=== PATIENT | male | born 1960 | race Caucasian/White ===

== ENCOUNTER 2023-02-05 10:14 | Outpatient (REF) | payer OTHER, SELFPAY ==
--- NOTE | ~2023-02-05 | XR_ITS ---
EXAMINATION: XR LUMBOSACRAL SPINE WITH OBLIQUES CLINICAL INFORMATION: Arthrodesis status COMPARISON: None available. TECHNIQUE: 4 views of the lumbar spine. Lateral view of the lumbosacral junction. FINDINGS: There is normal lumbar lordosis. There is disc prosthesis at the L4-L5 disc level with bilateral L4 and L5 pedicular screws and interconnecting rods for posterior stabilization. Rest of the disc heights, vertebral heights and alignment is preserved. On flexion-extension views there is no subluxation seen the soft tissues are normal. XR/XR lumbar spine 4V min IMPRESSION: Disc prosthesis at the L4-L5 disc level with bilateral L4 and L5 pedicular screws and interconnecting rods for posterior stabilization. No subluxation seen on flexion-extension views.
== END 2023-02-05 10:15 | disposition home or self-care (01) ==
LOC: HO.HOSX 10:14
PROVIDERS: PCP Internal Medicine Geriatric Medicine; Visit Provider Neurological Surgery
DX: Z98.1 Arthrodesis status (principal)
CPT/HCPCS: 72110

== ENCOUNTER 2023-05-14 08:43 | Outpatient (AMB) | payer OTHER, SELFPAY ==
--- NOTE | 2023-05-14 09:05 | HO.SPINEOV ---
Intake Intake Visit Reasons: 3 month f/u Intake Note: Mr. Nolasco is here today for his 3mo f/u. 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 He states that his back pain is improved with physical therapy and anti-inflammatory drugs. I advised him to continue this regiment. On exam, he looks comfortable. He ambulates without pain. He will call my office if he regresses and at that point we will order a CT of the lumbar spine. Caesar Leon MD, PhD Spine Fellowship Trained Neurosurgeon Director, [facility] Coding Level of Care Code Est Pt Level 2 (65127) Diagnoses Status post lumbar and lumbosacral fusion by anterior technique Z98.1
== END 2023-05-14 09:49 | disposition home or self-care (01) ==
PROVIDERS: PCP Internal Medicine Geriatric Medicine; Visit Provider Neurological Surgery
DX: Z98.1 Arthrodesis status (principal)
CPT/HCPCS: 99212

== ENCOUNTER → 2023-05-14 08:43 | Outpatient (BNVA) | payer OTHER, SELFPAY | PROVIDERS: Visit Provider Neurological Surgery ==